=== PATIENT | female | born 1975 | race Caucasian/White ===

== ENCOUNTER 2018-02-15 11:05 | Emergency (ER) | payer SELFPAY ==
[2018-02-15 12:02] LABS: BASOPHILS % (AUTO) 0.6 %; EOSINOPHILS % (AUTO) 0.5 %; HGB - HEMOGLOBIN 15.1 g/dL (12.0-16.0); LYMPHOCYTES # (AUTO) 1.6 10^3/uL (1.5-3.5); LYMPHOCYTES % (AUTO) 28.9 %; MEAN CORPUSCULAR HEMOGLOBIN 31.6 pg (27.0-31.0); MEAN CORPUSCULAR HGB CONC 34.2 g/dL (32.0-36.0); MEAN CORPUSCULAR VOLUME 92.4 fL (81.0-99.0); MEAN PLATELET VOLUME 9.1 fL (7.9-10.8); MONOCYTES # (AUTO) 0.3 10^3/uL (0.0-1.0); MONOCYTES % (AUTO) 5.6 %; NEUTROPHILS # (AUTO) 3.6 10^3/uL (1.5-6.6); NEUTROPHILS % (AUTO) 64.4 %; PLT - PLATELET COUNT 224 10^3/uL (130-450); RED BLOOD COUNT 4.76 10^6/uL (4.20-5.40); RED CELL DISTRIBUTION WIDTH 13.5 % (12.0-15.0); WHITE BLOOD COUNT 5.7 x10^3/uL (4.8-10.8)
--- NOTE | 2018-02-15 12:07 | ED Physician Documentation ---
PD HPI ABD PAIN - Stated complaint Stated Complaint: SIDE PX - Chief complaint Chief Complaint: Abd Pain - History obtained from History obtained from: Patient - History of Present Illness Timing - onset: How many weeks ago (1-2 weeks or more of lower abd cramping and low back pains. Frequency of urination but not hurting per se. Has noted slight vag discharge. Normal BMs. The past 2-3 days is also having feeling malaise, some sore throat and nausea, chills.) Timing - duration: Weeks Timing - details: Gradual onset, Waxing and waning Quality: Cramping, Aching Location: Suprapubic Radiation: Lower back Improved by: No: Eating, BM Worsened by: No: Eating, Position, Palpation Associated symptoms: Nausea, Dysuria (frequency without pain per se), Vaginal dc (mild). No: Fever, Vomiting, Diarrhea, Hematuria, Vaginal bleeding Similar symptoms before: Has not had sx before Recently seen: Not recently seen Review of Systems Constitutional: reports: Chills, Myalgias. denies: Fever Nose: reports: Congestion Throat: reports: Sore throat Respiratory: denies: Cough GI: reports: Nausea. denies: Vomiting, Diarrhea : reports: Frequency, Discharge. denies: Vaginal bleeding Skin: denies: Rash PD PAST MEDICAL HISTORY - Past Medical History Past Medical History: No RIV[employer]NER: None : None - Past Surgical History Past Surgical History: No - Present Medications Home Medications: Ambulatory Orders Medication Instructions Recorded Confirmed Metronidazole [Flagyl] 500 mg PO BID #14 tablet 02/15/18 - Allergies Allergies/Adverse Reactions: Allergies Allergy/AdvReac Type Severity Reaction Status Date / Time No Known Drug Allergies Allergy Verified 02/15/18 11:15 - Social History Does the pt smoke?: No Smoking Status: Never smoker Does the pt drink ETOH?: Yes Does the pt have substance abuse?: No - Immunizations Immunizations are current?: Yes PD ED PE NORMAL - Vitals Vital signs reviewed: Yes - General General: Alert and oriented X 3, No acute distress, Well developed/nourished - HEENT HEENT: Ears normal, Pharynx benign - Neck Neck: Supple, no meningeal sign, No adenopathy - Cardiac Cardiac: RRR, No murmur - Respiratory Respiratory: Clear bilaterally - Abdomen Abdomen: Soft, Non tender - Female Female : Manager Dish present, Other (moderate white milky discharge in vaginal vault with some redness of cervix. Appears likely BV. Does not look STD at this point on exam. ) - Rectal Rectal: Deferred - Back Back: No CVA TTP - Derm Derm: Normal color, Warm and dry, No rash Results - Vitals Vitals: Vital Signs - 24 hr 02/15/18 11:11 Temperature 36.5 C Heart Rate 70 Respiratory 16 Rate Blood Pressure 126/85 H O2 Saturation 97 Oxygen O2 Source Room air - Labs Labs: Laboratory Tests 02/15/18 11:56 WBC 5.7 RBC 4.76 Hgb 15.1 Hct 44.0 MCV 92.4 MCH 31.6 H MCHC 34.2 RDW 13.5 Plt Count 224 MPV 9.1 Neut # (Auto) 3.6 Lymph # (Auto) 1.6 [place] # (Auto) 0.3 Eos # (Auto) 0.0 Baso # (Auto) 0.0 Absolute Nucleated RBC 0.00 Nucleated RBC % 0.1 PD MEDICAL DECISION MAKING - ED course Complexity details: considered differential (she is having some malaise and congestion, nausea for couple days, which I think is regular viral illness. Her dysuria seems related to BV on exam. ), d/w patient - Sepsis Event Vital Signs: Vital Signs - 24 hr 02/15/18 11:11 Temperature 36.5 C Heart Rate 70 Respiratory 16 Rate Blood Pressure 126/85 H O2 Saturation 97 Oxygen O2 Source Room air Departure - Departure Disposition: 01 Home, Self Care Clinical Impression: Bacterial vaginitis, Dysuria Upper respiratory infection Qualifiers: URI type: unspecified URI Qualified Code(s): J06.9 - Acute upper respiratory infection, unspecified Condition: Stable Record reviewed to determine appropriate education?: Yes Instructions: ED Vaginosis Bacterial Follow-Up: DIANA TORRES MD [Primary Care Provider] - Prescriptions: Metronidazole [Flagyl] 500 mg PO BID #14 tablet Comments: Drink lots of fluids. I think you are likely having current viral illness with your symptoms the last couple of days. The difficulty urinating and low back pain is likely from the bacterial vaginitis. We will treat that with Flagyl twice daily for a week. You can add some naproxen or ibuprofen twice daily for the next week as well. This should improve those symptoms. We did do a culture as well and if we need to amend the antibiotics will give you a call when it results in 2-3 days. Discharge Date/Time: 02/15/18 13:21
[2018-02-15 12:08] LABS: BILIRUBIN,URINE NEGATIVE (NEGATIVE); GLUCOSE, URINE (UA) NEGATIVE (NEGATIVE); KETONES,URINE (UA) NEGATIVE (NEGATIVE); LEUKOCYTE ESTERASE, URINE NEGATIVE (NEGATIVE); NITRITE,URINE NEGATIVE (NEGATIVE); OCCULT BLOOD,URINE NEGATIVE (NEGATIVE); PROTEIN,URINE NEGATIVE (NEGATIVE); UROBILINOGEN,URINE 0.2 (NORMAL) E.U./dL (NORMAL)
[2018-02-15 12:09] LABS: CLARITY,URINE CLEAR (CLEAR); HCG UR QUAL NEGATIVE
[2018-02-15 12:15] LABS: ALBUMIN 4.6 g/dL (3.2-5.5); ALBUMIN/GLOBULIN RATIO 1.5 (1.0-2.2); BILIRUBIN,TOTAL 1.3 mg/dL (0.2-1.0); CALCIUM 9.3 mg/dL (8.5-10.3); CREATININE 0.8 mg/dL (0.4-1.0); TOTAL PROTEIN 7.7 g/dL (6.7-8.2)
[2018-02-15] MEDS ORDERED: metroNIDAZOLE 250 MG TABLET PO STA (13:10)
[2018-02-15] MEDS ORDERED: NAPROXEN 250 MG TABLET PO STA (13:10)
[2018-02-15 13:22] VITALS: BP 124/86
== END 2018-02-15 13:21 | disposition home or self-care (01) ==
LOC: ED 11:05
DX: N76.0 Acute vaginitis (principal); B96.89 Other specified bacterial agents as the cause of diseases classified elsewhere; J06.9 Acute upper respiratory infection, unspecified
CPT/HCPCS: 36415; 80053; 81003; 81025; 83690; 85025; 87210; 87491; 87591; 99283; A9270; 81001; 87086